=== PATIENT | male | born 1960 | race African-American/Black ===

== ENCOUNTER 2025-02-09 17:51 | Emergency (ER) | payer OTHER, MEDICARE, SELFPAY ==
--- NOTE | ~2025-02-09 | XR_ITS ---
XR toe 5th RT min 2V INDICATION: pain COMPARISON: None FINDINGS: Frontal, lateral and oblique views of the right fifth toe demonstrate the middle phalanx is subluxed laterally relative to the proximal phalanx. No acute fracture. IMPRESSION: Probable oropharynx of the first carpal is subluxed laterally relative to the proximal phalanx. No acute fracture. Reviewed, dictated and finalized at location S. IMPRESSION: Probable oropharynx of the first carpal is subluxed laterally relative to the p roximal phalanx. No acute fracture.
--- NOTE | ~2025-02-09 | XR_ITS ---
XR toe 5th RT min 2V INDICATION: pain COMPARISON: None FINDINGS: Single view of the right fifth toe demonstrate persistent lateral subluxation of the middle phalanx. IMPRESSION: There is persistent lateral subluxation of the middle phalanx. Reviewed, dictated and finalized at location S.
--- NOTE | ~2025-02-09 | XR_ITS ---
XR toe 5th RT min 2V INDICATION: pain COMPARISON: None FINDINGS: Single view of the right fifth toe demonstrate no acute fracture or dislocation. IMPRESSION: No acute fracture or dislocation. Reviewed, dictated and finalized at location S.
[2025-02-09 17:55] VITALS: BP 170/90; PULSE 89; RESP 16; TEMP 36.4; O2SAT 100
--- NOTE | 2025-02-09 19:45 | PC.NURSE ---
Pt declines ice pack at this time. Updated pt on POC.
--- OUTSIDE RECORDS SUMMARY | 2025-02-09 19:48 | XMS_ITS | Clinical Summary ---
Author Organization [employer] Address [address] [place] [address] Care Team Providers Care Security Coordinator Name Role Phone Provider, No Pcp Primary Care Provider Unavailab le Source Comments [facility],non-owned Affiliates and Associated Physician Practices is amultiple site organization consisting of ambulatory clinics and hospital sitesin [place], [place], [place]. This disclosure is being madepursuant to the Care Everywhere program and may not contain all information available regarding this patient. Last updated 18.[employer] Allergies No known active allergies Medications * Be aware that medications may not be up to date on this document. Alwaysverify current medications with the patient. No known medications Active Problems Problem Noted Date Diagnosed Date Hypertension, unspecified type 12/19/2024 Assessment & Plan (12/21/2024 6:01 PM CDT): - Continue home losartan. Assessment & Plan (12/20/2024 8:06 AM CDT): - Continue home hydrochlorothiazide, losartan. Assessment & Plan (12/19/2024 7:40 PM CDT): - Continue home hydrochlorothiazide, losartan. Abnormal EKG 12/19/2024 Chest pain 12/19/2024 Assessment & Plan (12/21/2024 6:01 PM CDT): - ddx includes dehydration, orthostatic hypotension, arrhythmia, vasovagal, medication adverse effect, structural heart disease, BPPV, costochondritis/muscle strain, other. - near syncope with concurrent chest pain when standing up favors cardiogenic etiology. - Patient states he has never had an echocardiogram before; no records on file. - Troponins WNL; electrolytes WNL. - No cardiac history per patient and record, however, it is unclear why the patient is taking aspirin. Plan: Follow up with [facility] for POTS Assessment & Plan (12/20/2024 4:10 PM CDT): - ddx includes dehydration, orthostatic hypotension, arrhythmia, vasovagal, medication adverse effect, structural heart disease, BPPV, costochondritis/muscle strain, other. - near syncope with concurrent chest pain when standing up favors cardiogenic etiology. - Patient states he has never had an echocardiogram before; no records on file. - Troponins WNL; electrolytes WNL. - No cardiac history per patient and record, however, it is unclear why the patient is taking aspirin. Plan: - Echo ordered - Repeat EKG ordered - Cardiac diet - BNP - Lipid profile - daily CBC, CMP, Mag, phos - Continue home ASA - Q4 vitals - Telemetry monitoring - Consider event monitor at discharge if work-up negative. -Bolus 500cc LR given Assessment & Plan (12/19/2024 7:40 PM CDT): - ddx includes dehydration, orthostatic hypotension, arrhythmia, vasovagal, medication adverse effect, structural heart disease, BPPV, costochondritis/muscle strain, other. - near syncope with concurrent chest pain when standing up favors cardiogenic etiology. - Patient states he has never had an echocardiogram before; no records on file. - Troponins WNL; electrolytes WNL. - No cardiac history per patient and record, however, it is unclear why the patient is taking aspirin. Plan: - Echo ordered - Repeat EKG ordered - Cardiac diet - BNP - Lipid profile - daily CBC, CMP, Mag, phos - Continue home ASA - Q4 vitals - Telemetry monitoring - Consider event monitor at discharge if work-up negative. Near syncope 12/19/2024 Assessment & Plan (12/21/2024 6:01 PM CDT): - ddx includes dehydration, orthostatic hypotension, arrhythmia, vasovagal, medication adverse effect, structural heart disease, BPPV, costochondritis/muscle strain, other. - near syncope with concurrent chest pain when standing up favors cardiogenic etiology. - Patient states he has never had an echocardiogram before; no records on file. - Troponins WNL; electrolytes WNL. - No cardiac history per patient and record, however, it is unclear why the patient is taking aspirin. Plan: Follow up with [facility] for POTS Assessment & Plan (12/20/2024 4:10 PM CDT): - ddx includes dehydration, orthostatic hypotension, arrhythmia, vasovagal, medication adverse effect, structural heart disease, BPPV, costochondritis/muscle strain, other. - near syncope with concurrent chest pain when standing up favors cardiogenic etiology. - Patient states he has never had an echocardiogram before; no records on file. - Troponins WNL; electrolytes WNL. - No cardiac history per patient and record, however, it is unclear why the patient is taking aspirin. Plan: - Echo ordered - Repeat EKG ordered - Cardiac diet - BNP - Lipid profile - daily CBC, CMP, Mag, phos - Continue home ASA - Q4 vitals - Telemetry monitoring - Consider event monitor at discharge if work-up negative. -Bolus 500cc LR given Assessment & Plan (12/19/2024 7:40 PM CDT): - ddx includes dehydration, orthostatic hypotension, arrhythmia, vasovagal, medication adverse effect, structural heart disease, BPPV, costochondritis/muscle strain, other. - near syncope with concurrent chest pain when standing up favors cardiogenic etiology. - Patient states he has never had an echocardiogram before; no records on file. - Troponins WNL; electrolytes WNL. - No cardiac history per patient and record, however, it is unclear why the patient is taking aspirin. Plan: - Echo ordered - Repeat EKG ordered - Cardiac diet - BNP - Lipid profile - daily CBC, CMP, Mag, phos - Continue home ASA - Q4 vitals - Telemetry monitoring - Consider event monitor at discharge if work-up negative. Dyslipidemia 12/19/2024 Assessment & Plan (12/21/2024 5:41 PM CDT): - Continue home atorvastatin Assessment & Plan (12/20/2024 8:06 AM CDT): - Continue home atorvastatin Assessment & Plan (12/19/2024 7:40 PM CDT): - Continue home atorvastatin Type 2 diabetes mellitus, wi thout long-term current use of insulin 12/19/2024 Assessment & Plan (12/21/2024 6:01 PM CDT): - A1C 12.4 on 09/14/2024 per CPRS. - On insulin in the past, not currently on insulin. - On semaglutide and empagliflozin at home - Glucose in low 100s since presentation. Plan: -Resume home med Assessment & Plan (12/20/2024 8:06 AM CDT): - A1C 12.4 on 09/14/2024 per CPRS. - On insulin in the past, not currently on insulin. - On semaglutide and empagliflozin at home - Glucose in low 100s since presentation. Plan: - SSI 0-6 - hypoglycemic protocols - A1C ordered Assessment & Plan (12/19/2024 7:40 PM CDT): - A1C 12.4 on 09/14/2024 per CPRS. - On insulin in the past, not currently on insulin. - On semaglutide and empagliflozin at home - Glucose in low 100s since presentation. Plan: - SSI 0-6 - hypoglycemic protocols - A1C ordered Class 3 severe obesity due to excess calories in adult 12/19/2024 Assessment & Plan (12/21/2024 6:01 PM CDT): - Patient states he has intentionally lost 180 pounds, with his max weight being ~505 pounds. Assessment & Plan (12/20/2024 8:06 AM CDT): - Patient states he has intentionally lost 160 pounds, with his max weight being ~505 pounds. Assessment & Plan (12/19/2024 7:40 PM CDT): - Patient states he has intentionally lost 160 pounds, with his max weight being ~505 pounds. Encounters Date Type Department Care Team Description 12/19/2024 3:19 PM CDT - 12/21/2024 5:28 PM CDT Hospital Encounter [facility] Early Admission Unit [address] [place] [id number] Nancie Mora MD Wheeler, Joseph R, MD Eshetu, Nebiyu A, MD Internal Medicine Discharge Disposition: Home or Self Care 12/19/2024 Travel from Last 3 Months Family History Medical History Relation Name Comments None Known Brother cancer None Known Father heart disease None Known Mother heart disease None Known Sister cancer Relation Name Status Comments Brother Father Mother Sister Social History Tobacco Use Types Packs/Day Years Used Date Smoking Tobacco: Never Smokeless Tobacco: Never Tobacco Cessation:Counseling Given: No Alcohol Use Standard Drinks/Week Comments Never 0 (1 standard drink = 0.6 oz pur e alcohol) AUDIT-C Answer Date Recorded Q1: How often do you have a drink containing alcohol? Never 12/20/2024 Q2: How many drinks containi ng alcohol do you have on a typical day when you are drinking? Patient does not drink Q3: How often do you have si x or more drinks on one occasion? Never 12/20/2024 Overall Financial Resource Strain (CARDIA) Answe r Date Recorded How hard is it for you to pa y for the very basics like food, housing, medical care, and heating? Not very hard 12/20/2024 [facility] [place] [facility] Occupat ional [facility] - Occupational Stress Questionnaire Answer Date Recorded Do you feel stress - tense, restless, nervous, or anxious, or unable to sleep at night because your mind is troubled all the time - these days? Not at all 12/20/2024 Hunger Vital Sign Answer Date Recorded Within the past 12 months, y ou worried that your food would run out before you got the money to buy more. Never true 12/21/19 Within the past 12 months, t he food you bought just didn't last and you didn't have money to get more. Never true 12/20/2024 PRAPARE - Transportation Answer Date Re corded In the past 12 months, has l ack of transportation kept you from medical appointments or from getting medications? No 11/27 In the past 12 months, has l ack of transportation kept you from meetings, work, or from getting things needed for daily living? No 12/20/2024 Housing Stability Vital Sign Answer Eder e Recorded In the last 12 months, was t here a time when you were not able to pay the mortgage or rent on time? No 12/20/2024 In the past 12 months, how m any times have you moved where you were living? 0 12/20/2024 At any time in the past 12 m [facility], were you homeless or living in a intermediate (including now)? No 12/20/2024 Sex and Gender Information Value Date Recorded Sex Assigned at Not on file Legal Sex Male 12:40 PM CDT Gender Identity Not on file Sexual Orientation Not on file Last Filed Vital Signs Vital Sign Reading Time Taken Comments Blood Pressure 112/76 12/21/2024 2:25 PM CDT Pulse 81 12/21/2024 2:25 PM CDT Temperature 36.6 C (97.9 F) 12/21/2024 2:25 PM CDT Respiratory Rate 20 12/21/2024 2:25 PM CDT Oxygen Saturation 94% 12/21/2024 2:25 PM CDT Inhaled Oxygen Concentration - - Weight 167 kg (368 lb 3.2 oz) 12/19/2024 7:16 PM CDT Height 170.2 cm (5' 7) 12/19/2024 7:16 PM CDT Body Mass Index 57.67 12/19/2024 7:16 PM CDT Plan of Treatment Health Maintenance Due Date Last Done Comments COLOGUARD (AGES 45-75) - COLON CA SCREENING 1960 COLON MONITORING 1960 COLONOSCOPY - COLON CA SCREENING 1960 CT COLONOGRAPHY - COLON CA SCREENING 1960 Colorectal Cancer Screening 1960 FIT - COLON CA SCREENING 1960 FLEX SIG - COLON CA SCREENING 1960 MEDICARE AWV 12 MONTHS 1960 HEPATITIS C SCREENING 07/30/1976 DTAP/TDAP/TD VACCINES (1 - Tdap) 1977 PNEUMOCOCCAL VACCINE 50+ (1 of 2 - PCV) 1977 DIABETES-STATIN 1998 ZOSTER VACCINE (1 of 2) 2008 HEPATITIS B VACCINE (1 of 3 - Risk 3-dose series) 2018 Respiratory Syncytial Virus (RSV) Vaccine Pt: or over 60 yrs (1 - Risk 60-74 years 1-dose series) 2018 DEPRESSION SCREENING 04/28/2024 DIABETES - URINE PROTEIN SCREENING 04/28/2024 DIABETES RETINOPATHY SCREENING 12/19/2024 DIABETES-FOOT EXAM WITH MONOFILAMENT 12/19/2024 COVID-19 VACCINE ( season) 2024 04/06/2024, 07/24/2022, 04/02/2022, Additional history exists INFLUENZA VACCINE (#1) 2024 , 03/07/2023, 04/12/2022, Additional history exists DIABETES-HGB A1C 06/22/2025 12/20/2024 DIABETES-SERUM CREATININE 12/21/20252024, 12/20/2024, 12/19/2024 HIB VACCINE Aged Out No longer eligi ble based on patient's age to complete this topic HPV VACCINE Aged Out No longer eligi ble based on patient's age to complete this topic MENINGOCOCCAL (Group B) VACCINE SHARED DECISION-MAKING Aged Out No longer eligible based on patient's age to complete this topic MENINGOCOCCAL GROUPS A/C/Y/W VACCINE Aged Out No longer eligible based on patient's age to complete this topic Procedures Procedure Name Priority Date/Time Associated Diagnosis Comments GLUCOSE - POINT OF CARE Routine 12/21/2024 1:01 PM CDT GLUCOSE - POINT OF CARE Routine 12/21/2024 9:34 AM CDT ECHO COMPLETE W CONTRAST PENDING DISCHARGE 12/21/2024 9:22 AM CDT Chest pain, unspecified type PHOSPHORUS BLOOD Routine 12/21/2024 5:06 AM CDT Chest pain, unspecified type MAGNESIUM BLOOD Routine 12/21/2024 5:06 AM CDT Chest pain, unspecified type CBC W/O DIFFERENTIAL AM Draw 12/21/2024 5:06 AM CDT Chest pain, unspecified type COMPREHENSIVE METABOLIC PANEL AM Draw 12/21/2024 5:06 AM CDT Chest pain, unspecified type GLUCOSE - POINT OF CARE Routine 12/20/2024 9:06 PM CDT GLUCOSE - POINT OF CARE Routine 12/20/2024 5:52 PM CDT CARDIAC EKG ORDER 12/20/2024 2:5 0 PM CDT GLUCOSE - POINT OF CARE Routine 12/20/2024 12:26 PM CDT GLUCOSE - POINT OF CARE Routine 12/20/2024 8:53 AM CDT LIPID PROFILE Routine 12/20/2024 7:21 AM CDT Abnormal EKG Abnormal finding of blood chemistry, unspecified HEMOGLOBIN A1C Routine 12/20/2024 7:21 AM CDT Abnormal EKG Other specified diabetes mellitus without complications (HCC) PHOSPHORUS BLOOD Routine 12/20/2024 7:21 AM CDT Chest pain, unspecified type MAGNESIUM BLOOD Routine 12/20/2024 7:21 AM CDT Chest pain, unspecified type CBC W/O DIFFERENTIAL AM Draw 12/20/2024 7:21 AM CDT Chest pain, unspecified type COMPREHENSIVE METABOLIC PANEL AM Draw 12/20/2024 7:21 AM CDT Chest pain, unspecified type B-TYPE NATRIURETIC PEPTIDE Routine 12/20/2024 7:21 AM CDT Chest pain, unspecified type GLUCOSE - POINT OF CARE Routine 12/19/2024 9:17 PM CDT EKG 12-LEAD Routine 12/19/2024 4:49 PM CDT Chest pain, unspecified type TSH Routine 12/19/2024 3:16 PM CDT Abnormal EKG Other specified diabetes mellitus with unspecified diabetic retinopathy without macular edema (HCC) TROPONIN-I HIGH SENSITIVE REFLEX 1HOUR Timed 12/19/2024 3:16 PM CDT XR CHEST 2VW STAT 12/19/2024 2:30 PM CDT Chest pain, unspecified type TROPONIN-I HIGH SENSITIVE BASELINE + 1HR STAT 12/19/2024 1:16 PM CDT MAGNESIUM BLOOD STAT 12/19/2024 1:16 PM CDT COMPREHENSIVE METABOLIC PANEL STAT 12/19/2024 1:16 PM CDT CBC W AUTO DIFFERENTIAL STAT 12/19/2024 1:16 PM CDT EKG 12-LEAD STAT 12/19/2024 1:13 PM CDT Chest pain, unspecified type from Last 3 Months Results * GLUCOSE - POINT OF CARE (12/21/2024 1:01 PM CDT) Only the most recent of7 resultswithin the time period is included. Glucose WB/POC 96 70 - 99 mg/dL 12/21/2024 1:06 PM CDT [facility] Specimen Type Venous 12/21/2024 1:06 PM CDT [facility] Blood BLOOD SPECIMEN / Unknown 12/21/2024 1:01 PM CDT 12/21/2024 1:06 PM CDT Arlene Jacques MD LAB - POINT OF CARE ORDERABLE S Final Result [facility] [address] [place] [address], [facility] [phone] * ECHO COMPLETE W CONTRAST (12/21/2024 9:22 AM CDT) AV area index 1.114 cm /m SSM CV FUJI PACS Dimensionless Index 0.784 unitless SSM CV FUJI PACS Myocardial strain charge 2 unitless SSM CV FUJI PACS IVSd 2D 0.98 cm SSM CV FUJ I PACS LVIDd 3.916 cm SSM CV FUJ I PACS LVIDs 2.37 cm SSM CV FUJ I PACS LVOT diam 2.296 cm SSM CV FUJ I PACS LVPWd 0.886 cm SSM CV FUJ I PACS LV biplane EF 63.574 % SSM CV FUJI PACS LV A2C EF 63.569 % SSM CV FUJ I PACS LV A4C EF 64.23 % SSM CV FUJ I PACS LV EDV A2C 41.461 ml SSM CV FU JI PACS LV EDV A4C 94.887 ml SSM CV FU JI PACS LV ESV A2C 15.105 ml SSM CV FU JI PACS LV ESV A4C 33.941 ml SSM CV FU JI PACS LVOT pk grad 3.123 mmHg SSM CV FUJI PACS LVOT pk trent 95.248 cm/s SSM CV F UJI PACS LVOT VTI 19.912 cm SSM CV FUJ I PACS RV-rivera basal diam 3.26 cm SSM CV FUJI PACS RVIDd 3.016 cm SSM CV FUJ I PACS RVOT diam Doppler 2.243 cm SS M CV FUJI PACS RVOT pk trent 65.451 cm/s SSM CV F UJI PACS RVOT VTI 12.161 cm SSM CV FUJ I PACS LA size 4.145 cm SSM CV FUJ I PACS RA area 15.617 cm SSM CV FUJI PACS AV area pk trent 2.98 cm SSM CV FUJI PACS AV area cont VTI 3.247 cm SSM CV FUJI PACS AV pk grad 6.918 mmHg SSM CV FU JI PACS AV mn grad 3.689 mmHg SSM CV FU JI PACS AV pk trent 132.318 cm/s SSM CV FUJ I PACS AV VTI 25.386 cm SSM CV FUJ I PACS MV A pk trent 77.716 cm/s SSM CV F UJI PACS MV E pk trent 59.332 cm/s SSM CV F UJI PACS MV E' lateral trent 8.677 cm/s SS M CV FUJI PACS MV mn grad 1.136 mmHg SSM CV FU JI PACS MV VTI 19.979 cm SSM CV FUJ I PACS PV pk trent 79.127 cm/s SSM CV FUJ I PACS PV VTI 14.45 cm SSM CV FUJ I PACS TAPSE 1.823 cm SSM CV FUJ I PACS Anatomical Region Laterality Modality Ultrasound 12/21/2024 8:32 AM CDT Narrative 12/21/2024 11:04 AM CDT Summary * The left ventricle is normal in size with normal systolic function and an estimated ejection fraction of 64 % by biplane method of disks. Left ventricular wall motion is grossly normal, however endocardial definition is limited despite contrast. * There is mildly increased left ventricular wall thickness. * The left ventricular diastolic function is normal. * Right ventricle is normal in size with normal systolic function. * Unable to assess pulmonary pressures due to a lack of tricuspid and pulmonic regurgitation. * No hemodynamically significant valve disease. Patient Info Name: Karthik Keane Age: 64 years : 1960 Gender: Male Ht: 67 in Wt: 368 lb BSA: 2.91 m2 HR: 72 bpm BP: 119 / 68 mmHg Heart Rhythm: Sinus Rhythm Exam Date: 12/21/2024 8:32 AM Exam Room: [facility] 3 Patient Status: I/P Study Site: [facility] Primary Location: [facility] EStudy Info Technical Quality: Technically Difficult Exam Type: ECHO COMPLETE W CONTRAST Indications R07.9 - Chest pain, unspecified type Procedure(s) * A complete 2D, color Doppler, spectral Doppler and M-Mode transthoracic echocardiogram was performed with an Ultrasound Enhancing Agent (UEA). Contrast/Agitated Saline Contrast / Saline: Definity Amount: 1.50 ml Administered By: Celeste Pat Reaction to Contrast: no Reason for Technically Difficult Study: lung interference, body habitus Staff Referring Physician: Omero Salcedo Ordering Provider: Omero Salcedo Attending Physician: Omero Salcedo Fellow: Do Felder Woodwind Instrument Repairer: Celeste Pat Left Ventricle Left ventricular systolic function is normal with an estimated ejection fraction of 64% by biplane method of disks. The left ventricle is normal in size. There is mildly increased left ventricular wall thickness. The left ventricular mass is normal. Left ventricular segmental wall motion is grossly normal, however endocardial definition is limited despite contrast. The left ventricular diastolic function is normal. Right Ventricle The right ventricle is normal in size. Right ventricular systolic function is normal. Ventricular Septum Intact interventricular septum visualized by 2D and color Doppler imaging. Left Atrium The left atrium is normal in size. Right Atrium The right atrium is normal in size. Atrial Septum Intact interatrial septum visualized by 2D and color Doppler imaging. Aortic Valve The aortic valve is not well visualized. There is no aortic valve stenosis. There is no aortic valve regurgitation. Pulmonic Valve The pulmonic valve is not well visualized. There is no pulmonic valve stenosis. There is no pulmonic regurgitation. Mitral Valve The mitral valve is not well visualized, but grossly normal. There is no mitral valve stenosis. There is no mitral valve regurgitation. Tricuspid Valve The tricuspid valve is not well visualized. There is no tricuspid valve stenosis. There is no tricuspid valve regurgitation. Unable to assess pulmonary pressures due to a lack of tricuspid and pulmonic regurgitation. Inferior Vena Cava The inferior vena cava is not well visualized and therefore the right atrial pressure is assumed to be 8 mmHg. Pericardium/Pleural There is no pericardial effusion. Aorta The aortic root at the sinus of Valsalva is normal in size. The ascending aorta is normal in size. Measurements Left Ventricular Outflow Tract Name Value Normal LVOT 2D LVOT Diameter 2.3 cm LVOT Area 4.1 cm2 LVOT Doppler LVOT Peak Velocity 1.0 m/s LVOT Peak Gradient 3 mmHg LVOT Mean Velocity 62.69 cm/s LVOT Mean Gradient 2 mmHg LVOT VTI 19.9 cm LVOT VTI/AV VTI Ratio 0.8 LVOT Stroke Volume 82 ml LVOT Stroke Volume Index 28 ml/m2 35-58 LVOT CO 5.1 l/min LVOT CI 1.8 l/min/m2 Pulmonic Valve Name Value Normal PV 2D RVOT Diameter (2D) 2.2 cm 1.7-2.7 RVOT Doppler RVOT Peak Velocity 0.7 m/s RVOT Peak Gradient 2 mmHg RVOT Mean Gradient 1 mmHg PV Doppler PV Peak Velocity 0.8 m/s PV Peak Gradient 3 mmHg PV Mean Gradient 1 mmHg PV Area (Cont Eq VTI) 3.33 cm2 PV Area Index (Cont Eq VTI) 1.14 cm2/m2 PV Area (Cont Eq Trent) 3.3 cm2 PV Area Index (Cont Eq Trent) 1.12 cm2/m2 Mitral Valve Name Value Normal MV Doppler MV Peak Gradient 4 mmHg MV Mean Gradient 1 mmHg MV DI (VTI) 1.00 MV PHT 54 ms MV Area (PHT) 4.06 cm2 4.00-5.00 MV Area (Cont Eq VTI) 4.12 cm2 MV Diastolic Function MV E Peak Velocity 0.6 m/sec MV A Peak Velocity 0.8 m/sec MV E/A 0.8 MV Decel Time (PW) 212 ms MV A Wave Duration 140 ms MV Annular TDI MV Septal e' Velocity 7 cm/s >=8 MV E/e' (Septal) 9 <=8 MV Lateral e' Velocity 9 cm/s >=10 MV E/e' (Lateral) 7 <=8 MV e' Average 8 cm/s MV E/e' (Average) 8 Tricuspid Valve Name Value Normal Estimated PAP/RSVP RA Pressure 8 mmHg <=5 TV Annular TDI TV Lateral Samanta s' Velocity 14 cm/s 10-19 Septae/Shunt/Generic Name Value Normal Qp/Qs Qp/Qs 0.6 Aortic Valve Name Value Normal AV 2D/MM AV Cusp Sep (MM) 2.0 cm AV Doppler AV Peak Velocity 1.32 m/s AV Peak Gradient 7 mmHg AV Mean Gradient 4 mmHg AV VTI 25 cm AV Area (Cont Eq VTI) 3.25 cm2 >=2.00 AV Area (Cont Eq Trent) 2.98 cm2 AV DI (VTI) 0.78 AV DI (Trent) 0.72 AV Regurgitation 2D LVOT Area 4.14 cm2 Ventricles Name Value Normal LV Dimensions 2D/MM IVS Diastolic Thickness (2D) 1.0 cm 0.6-1.0 LVID Diastole (2D) 3.9 cm 4.2-5.8 LVPW Diastolic Thickness (2D) 0.9 cm 0.6-1.0 IVS Systolic Thickness (2D) 1.2 cm LVID Systole (2D) 2.4 cm 2.5-4.0 LVPW Systolic Thickness (2D) 1.4 cm LV Mass (2D Cubed) 99 g 88-224 LV Mass Index (2D Cubed) 34 g/m2 49-115 Relative Wall Thickness (2D) 0.45 <=0.42 LV Fractional Shortening/Ejection Fraction 2D/MM LV Fractional Shortening (2D) 39 % 25-43 LV EF (2D Teicholz) 71 % 52-72 LV Diastolic Volume (4C MOD) 95 ml LV EF (4C MOD) 64 % LV Diastolic Volume (2C MOD) 41 ml LV EF (2C MOD) 64 % LV Diastolic Volume (BP MOD) 66 ml 62-150 LV Diastolic Volume Index (BP MOD) 23 ml/m2 34-74 LV Systolic Volume (BP MOD) 24 ml 21-61 LV Systolic Volume Index (BP MOD) 8 ml/m2 11-31 LV EF (BP MOD) 64 % 52-72 LV Diastolic Length (4C) 8.0 cm LV Systolic Length (4C) 7.0 cm LV Stroke Volume (4C MOD) 61 ml RV Dimensions 2D/MM RVID Diastole (2D) 3.0 cm 2.5-3.5 RVID Systole (2D) 2.7 cm RV Basal Diastolic Dimension 3.3 cm 2.5-4.1 RV Diastolic Length (4C) 7.8 cm 5.9-8.3 TAPSE 1.8 cm >=1.7 Atria Name Value Normal LA Dimensions LA Dimension (2D) 4.1 cm 3.0-4.1 LA Dimen Index (2D) 1.4 cm/m2 RA Dimensions RA Area (4C) 16 cm2 <=18 RA Area (4C) Index 5 cm2/m2 Report Signatures Finalized by Mejia Prieto on 12/21/2024 11:04 AM Reviewed by Sohan Adames on 12/21/2024 10:28 AM Procedure Note Mejia Prieto MD - 12/21/2024 Summary * The left ventricle is normal in size with normal systolic function andan estimated ejection fraction of 64 % by biplane method of disks. Left ventricular wall motion is grossly normal, however endocardial definitionis limited despite contrast. * There is mildly increased left ventricular wall thickness. * The left ventricular diastolic function is normal. * Right ventricle is normal in size with normal systolic function. * Unable to assess pulmonary pressures due to a lack of tricuspid and pulmonic regurgitation. * No hemodynamically significant valve disease. Patient Info Name: Karthik Keane Age: 64 years : 1960 Gender: Male Ht: 67 in Wt: 368 lb BSA: 2.91 m2 HR: 72 bpm BP: 119 / 68 mmHg Heart Rhythm: Sinus Rhythm Exam Date: 12/21/2024 8:32 AM Exam Room: [facility] Patient Status: I/P Study Site: [facility] Primary Location: [facility] Info Technical Quality: Technically Difficult Exam Type: ECHO COMPLETE W CONTRAST Indications R07.9 - Chest pain, unspecified type Procedure(s) * A complete 2D, color Doppler, spectral Doppler and M-Modetransthoracic echocardiogram was performed with an Ultrasound Enhancing Agent (UEA). Contrast/Agitated Saline Contrast / Saline: Definity Amount: 1.50 ml Administered By: Celeste Pat Reaction to Contrast: no Reason for Technically Difficult Study: lung interference, bodyhabitus Staff Referring Physician: Omero Salcedo Ordering Provider: Omero Salcedo Attending Physician: Omero Salcedo Fellow: Do Felder Woodwind Instrument Repairer: Celeste Pat Left Ventricle Left ventricular systolic function is normal with an estimatedejection fraction of 64% by biplane method of disks. The left ventricle is normalin size. There is mildly increased left ventricular wall thickness. Theleft ventricular mass is normal. Left ventricular segmental wall motion isgrossly normal, however endocardial definition is limited despite contrast. Theleft ventricular diastolic function is normal. Right Ventricle The right ventricle is normal in size. Right ventricular systolicfunction is normal. Ventricular Septum Intact interventricular septum visualized by 2D and color Dopplerimaging. Left Atrium The left atrium is normal in size. Right Atrium The right atrium is normal in size. Atrial Septum Intact interatrial septum visualized by 2D and color Doppler imaging. Aortic Valve The aortic valve is not well visualized. There is no aortic valvestenosis. There is no aortic valve regurgitation. Pulmonic Valve The pulmonic valve is not well visualized. There is no pulmonic valve stenosis. There is no pulmonic regurgitation. Mitral Valve The mitral valve is not well visualized, but grossly normal. There isno mitral valve stenosis. There is no mitral valve regurgitation. Tricuspid Valve The tricuspid valve is not well visualized. There is no tricuspidvalve stenosis. There is no tricuspid valve regurgitation. Unable to assess pulmonary pressures due to a lack of tricuspid and pulmonicregurgitation. Inferior Vena Cava The inferior vena cava is not well visualized and therefore the rightatrial pressure is assumed to be 8 mmHg. Pericardium/Pleural There is no pericardial effusion. Aorta The aortic root at the sinus of Valsalva is normal in size. Theascending aorta is normal in size. Measurements Left Ventricular Outflow Tract Name Value Normal LVOT 2D LVOT Diameter 2.3 cm LVOT Area 4.1 cm2 LVOT Doppler LVOT Peak Velocity 1.0 m/s LVOT Peak Gradient 3 mmHg LVOT Mean Velocity 62.69 cm/s LVOT Mean Gradient 2 mmHg LVOT VTI 19.9 cm LVOT VTI/AV VTI Ratio 0.8 LVOT Stroke Volume 82 ml LVOT Stroke Volume Index 28 ml/m2 35-58 LVOT CO 5.1 l/min LVOT CI 1.8 l/min/m2 Pulmonic Valve Name Value Normal PV 2D RVOT Diameter (2D) 2.2 cm 1.7-2.7 RVOT Doppler RVOT Peak Velocity 0.7 m/s RVOT Peak Gradient 2 mmHg RVOT Mean Gradient 1 mmHg PV Doppler PV Peak Velocity 0.8 m/s PV Peak Gradient 3 mmHg PV Mean Gradient 1 mmHg PV Area (Cont Eq VTI) 3.33 cm2 PV Area Index (Cont Eq VTI) 1.14 cm2/m2 PV Area (Cont Eq Trent) 3.3 cm2 PV Area Index (Cont Eq Trent) 1.12 cm2/m2 Mitral Valve Name Value Normal MV Doppler MV Peak Gradient 4 mmHg MV Mean Gradient 1 mmHg MV DI (VTI) 1.00 MV PHT 54 ms MV Area (PHT) 4.06 cm2 4.00-5.00 MV Area (Cont Eq VTI) 4.12 cm2 MV Diastolic Function MV E Peak Velocity 0.6 m/sec MV A Peak Velocity 0.8 m/sec MV E/A 0.8 MV Decel Time (PW) 212 ms MV A Wave Duration 140 ms MV Annular TDI MV Septal e' Velocity 7 cm/s >=8 MV E/e' (Septal) 9 <=8 MV Lateral e' Velocity 9 cm/s >=10 MV E/e' (Lateral) 7 <=8 MV e' Average 8 cm/s MV E/e' (Average) 8 Tricuspid Valve Name Value Normal Estimated PAP/RSVP RA Pressure 8 mmHg <=5 TV Annular TDI TV Lateral Samanta s' Velocity 14 cm/s 10-19 Septae/Shunt/Generic Name Value Normal Qp/Qs Qp/Qs 0.6 Aortic Valve Name Value Normal AV 2D/MM AV Cusp Sep (MM) 2.0 cm AV Doppler AV Peak Velocity 1.32 m/s AV Peak Gradient 7 mmHg AV Mean Gradient 4 mmHg AV VTI 25 cm AV Area (Cont Eq VTI) 3.25 cm2 >=2.00 AV Area (Cont Eq Trent) 2.98 cm2 AV DI (VTI) 0.78 AV DI (Trent) 0.72 AV Regurgitation 2D LVOT Area 4.14 cm2 Ventricles Name Value Normal LV Dimensions 2D/MM IVS Diastolic Thickness (2D) 1.0 cm 0.6-1.0 LVID Diastole (2D) 3.9 cm 4.2-5.8 LVPW Diastolic Thickness (2D) 0.9 cm 0.6-1.0 IVS Systolic Thickness (2D) 1.2 cm LVID Systole (2D) 2.4 cm 2.5-4.0 LVPW Systolic Thickness (2D) 1.4 cm LV Mass (2D Cubed) 99 g 88-224 LV Mass Index (2D Cubed) 34 g/m2 49-115 Relative Wall Thickness (2D) 0.45 <=0.42 LV Fractional Shortening/Ejection Fraction 2D/MM LV Fractional Shortening (2D) 39 % 25-43 LV EF (2D Teicholz) 71 % 52-72 LV Diastolic Volume (4C MOD) 95 ml LV EF (4C MOD) 64 % LV Diastolic Volume (2C MOD) 41 ml LV EF (2C MOD) 64 % LV Diastolic Volume (BP MOD) 66 ml 62-150 LV Diastolic Volume Index (BP MOD) 23 ml/m2 34-74 LV Systolic Volume (BP MOD) 24 ml 21-61 LV Systolic Volume Index (BP MOD) 8 ml/m2 11-31 LV EF (BP MOD) 64 % 52-72 LV Diastolic Length (4C) 8.0 cm LV Systolic Length (4C) 7.0 cm LV Stroke Volume (4C MOD) 61 ml RV Dimensions 2D/MM RVID Diastole (2D) 3.0 cm 2.5-3.5 RVID Systole (2D) 2.7 cm RV Basal Diastolic Dimension 3.3 cm 2.5-4.1 RV Diastolic Length (4C) 7.8 cm 5.9-8.3 TAPSE 1.8 cm >=1.7 Atria Name Value Normal LA Dimensions LA Dimension (2D) 4.1 cm 3.0-4.1 LA Dimen Index (2D) 1.4 cm/m2 RA Dimensions RA Area (4C) 16 cm2 <=18 RA Area (4C) Index 5 cm2/m2 Report Signatures Finalized by Mejia Prieto on 12/21/2024 11:04 AM Reviewed by Sohan Adames on 12/21/2024 10:28 AM us Omero Salcedo MD ECHO CUPID Final Result * (ABNORMAL) CBC W/O DIFFERENTIAL (12/21/2024 5:06 AM CDT) Only the most recent of2 resultswithin the time period is included. WBC 8.1 4.0 - 10.7 x10E9/L 12/21/2024 5:59 AM [facility] RBC Count 4.08(L) 4.30 - 5.80 x10E12/L 12/21/2024 5:59 AM [facility] Hemoglobin 12.4(L) 13.3 - 17.5 g/dL 12/21/2024 5:59 AM [facility] Hematocrit 37.6(L) 38.7 - 51.1 % 12/21/2024 5:59 AM [facility] MCV 92.2 80.0 - 98.0 fL 12/21/2024 5:59 AM [facility] MCH 30.4 26.7 - 33.6 pg 12/21/2024 5:59 AM [facility] MCHC 33.0 31.7 - 36.3 g/dL 12/21/2024 5:59 AM [facility] RDW-CV 12.9 11.3 - 14.8 % 12/21/2024 5:59 AM [facility] Platelet Count 188 150 - 420 x10E9/L 12/21/2024 5:59 AM [facility] MPV 10.8 7.8 - 11.4 fL 12/21/2024 5:59 AM [facility] Blood BLOOD SPECIMEN / Unknown Lab Venipuncture / Unknown 12/21/2024 5:06 AM CDT 12/21/2024 5:53 AM CDT us Nancie Mora MD LAB - HEMATOLOGY ORDERABLES Fi nal Result [facility] [address] [place] [address], [facility] [phone] * (ABNORMAL) COMPREHENSIVE METABOLIC PANEL (12/21/2024 5:06 AM T) Only the most recent of3 resultswithin the time period is included. BUN 26 7 - 26 mg/dL 12/21/2024 6:29 AM [facility] Creatinine 1.21(H) 0.71 - 1.16 mg/dL 12/21/2024 6:29 AM [facility] Sodium 137 136 - 145 mmol/L 12/21/2024 6:29 AM [facility] Potassium 3.9 3.5 - 4.5 mmol/L 12/21/2024 6:29 AM [facility] Chloride 108(H) 98 - 107 mmol/L 12/21/2024 6:29 AM [facility] CO2 20(L) 22 - 29 mmol/L 12/21/2024 6:29 AM [facility] Glucose 98 70 - 99 mg/dL 12/21/2024 6:29 AM [facility] Calcium 9.0 8.4 - 10.2 mg/dL 12/21/2024 6:29 AM [facility] Protein Total 7.3 6.0 - 8.3 g/dL 12/21/2024 6:29 AM [facility] Albumin 3.6 3.4 - 5.0 g/dL 12/21/2024 6:29 AM [facility] Bilirubin Total 0.4 0.2 - 1.2 mg/dL 12/21/2024 6:29 AM [facility] Alkaline Phosphatase 84 40 - 150 U/L 12/21/2024 6:29 AM [facility] ALT 30 5 - 55 U/L 12/21/2024 6:29 AM [facility] AST 28 5 - 34 U/L 12/21/2024 6:29 AM [facility] Anion Gap 9 6 - 16 12/21/2024 6:29 AM [facility] BUN/Creatinine Ratio 21 7 - 23 12/21/2024 6:29 AM [facility] Osmolality Calculated 289 275 - 295 mOsm/kg 12/21/2024 6:29 AM [facility] Albumin/Globulin Ratio 1.0(L) 1.1 - 2.3 12/21/2024 6:29 AM [facility] eGFR by CKD-EPI 66(L) >=90 mL/min/1.7 3 m2 12/21/2024 6:29 AM [facility] Comment:Estimated Glomerular Filtration Rate (eGFR) calculated using the CKD-EPI Creatinine Equation (2020), per the National Kidney Foundation and [place] Society of Nephrology recommendations. Blood BLOOD SPECIMEN / Unknown Lab Venipuncture / Unknown 12/21/2024 5:06 AM CDT 12/21/2024 5:52 AM CDT us Nancie Mora MD LAB - CHEMISTRY ORDERABLES Fin al Result [address] [address], [facility] [phone] * PHOSPHORUS BLOOD (12/21/2024 5:06 AM CDT) Only the most recent of2 resultswithin the time period is included. Phosphorus 3.8 2.8 - 5.1 mg/dL 12/21/2024 6:29 AM [facility] Blood BLOOD SPECIMEN / Unknown Lab Venipuncture / Unknown 12/21/2024 5:06 AM CDT 12/21/2024 5:52 AM CDT us Nancie Mora MD LAB - CHEMISTRY ORDERABLES Fin al Result [address] [address], [facility] [phone] * MAGNESIUM BLOOD (12/21/2024 5:06 AM CDT) Only the most recent of3 resultswithin the time period is included. Magnesium 2.0 1.6 - 2.6 mg/dL 12/21/2024 6:29 AM CDT [facility] Blood BLOOD SPECIMEN / Unknown Lab Venipuncture / Unknown 12/21/2024 5:06 AM CDT 12/21/2024 5:52 AM CDT us Nancie Mora MD LAB - CHEMISTRY ORDERABLES Fin al Result Performing Organization Address City/[facility]/ZIP Co de Phone Number [address] [address], [facility] [phone] * CARDIAC EKG ORDER (12/20/2024 2:50 PM CDT) Narrative 12/20/2024 2:50 PM CDT Ordered by an unspecified provider. Scanned Document CARDIAC SERVICES ORDERABLES Fin al Result * (ABNORMAL) HEMOGLOBIN A1C (12/20/2024 7:21 AM CDT) Hemoglobin A1c 6.3(H) <=5.6 % 12/20/2024 1:12 PM CDT [facility] Estimated Average Glucose 134 mg/dL 12/20/2024 1:12 PM CDT [facility] Comment: HbA1c Interpretation: Normal : < 5.7% Pre-diabetes: 5.7-6.4% Diabetes: Equal to or greater than 6.5% Test results diagnostic of diabetes should be repeated for confirmation. Treatment target values recommended by ADA and other clinical organizations should be used to evaluate metabolic control in patients. Reference: [place] Diabetes Association, Standards of Care in Diabetes -2020 In patients 70 years and older consider HbA1c target range of 7.0-7.5% (Reference: Bhandari A, et al. JAMDA. 2012) The Sebia assay for the measurement of HbA1c is a National Glycohemoglobin Standardization Program (NGSP) certified method. Blood BLOOD SPECIMEN / Unknown Lab Venipuncture / Unknown 12/20/2024 7:21 AM CDT 12/20/2024 9:26 AM CDT Nancie Mora MD LAB - CHEMISTRY ORDERABLES Fin al Result Performing Organization Address City/[facility]/ZIP Co de Phone Number [address] [address], [facility] [phone] * B-TYPE NATRIURETIC PEPTIDE (12/20/2024 7:21 AM CDT) Pathologist [facility] BNP <10 <100 pg/mL 12/20/2024 10:05 AM CDT [facility] Comment: A decision threshold of 100 pg/mL has been demonstrated to provide the maximal combination of sensitivity, specificity and predictive value for the diagnosis of congestive heart failure (CHF). Virtually all patients with no evidence of CHF have BNP values less than 100 pg/mL. A BNP value greater than 100 pg/mL is consistent with the diagnosis of CHF in the appropriate clinical setting. In a study of 693 patients (male and female) with diagnosed CHF, the following values were determined based on the NYHA functional classification system: NYHA Functional Class Mean Valule (pg/mL) % >100 pg/mL I 320 58.1 II 432 73.0 III 656 79.0 IV 1635 98.3 Blood BLOOD SPECIMEN / Unknown Lab Venipuncture / Unknown 12/20/2024 7:21 AM CDT 12/20/2024 9:26 AM CDT Nancie Mora MD LAB - CHEMISTRY ORDERABLES Fin al Result Performing Organization Address City/[facility]/ZIP Co de Phone Number [address] [address], [place] [phone] * (ABNORMAL) LIPID PROFILE (12/20/2024 7:21 AM CDT) Cholesterol Total 138 <200 mg/dL 12/20/2024 10:27 AM T [facility] HDL 40(L) >40 mg/dL 12/20/2024 10:27 AM [facility] Comment: ATP III Classification of HDL Cholesterol: <40 mg/dL: Considered a major risk factor. >60 mg/dL: Considered a negative risk factor. LDL Calculated 80 <100 mg/dL 12/20/2024 10:27 AM [facility] Comment: ATP III Classification of LDL Cholesterol: <100 mg/dL: Optimal 100 - 129 mg/dL: Near Optimal/Above Optimal 130 - 159 mg/dL: Borderline High 160 - 189 mg/dL: High >190 mg/dL: Very High LDL is calculated using the Friedewald equation. Triglycerides 88 <150 mg/dL 12/20/2024 10:27 AM [facility] Comment: ATP III Classification of Triglycerides: <150 mg/dL: Normal 150 - 199 mg/dL: Borderline High 200 - 400 mg/dL: High >500 mg/dL: Very High Blood BLOOD SPECIMEN / Unknown Lab Venipuncture / Unknown 12/20/2024 7:21 AM CDT 12/20/2024 9:26 AM CDT us Nancie Mora MD LAB - CHEMISTRY ORDERABLES Fin al Result [facility] [address] [place] [phone], [facility] [phone] * EKG 12-Lead (12/19/2024 4:49 PM CDT) Only the most recent of2 resultswithin the time period is included. Ventricular Rate 97 BPM [facility] MUSE Atrial Rate 97 BPM [facility] MUSE P-R Interval 168 ms [facility] MUSE QRS Duration ms 84 ms [facility] MUSE Q-T Interval ms 352 ms [facility] MUSE QTC Calculation (Bezet) 447 ms [facility] MUSE Calculated P [place] 15 degrees SL MUSE Calculated R [place] -4 degrees [facility] MUSE Calculated T [place] 26 degrees [facility] MUSE Interpretation EKG NORMAL SINUS RHYTHM POSSIBLE ANTERIOR INFARCT , AGE UNDETERMINED ABNORMAL ECG WHEN COMPARED WITH ECG OF 19-DEC-2024 13:13, NO SIGNIFICANT CHANGE WAS FOUND Confirmed by MD HADLEY, ROBBIE ([id number]) on 12/20/2024 9:40:46 AM [facility] MUSE 12/19/2024 4:49 PM CDT 12/20/2024 9:40 AM CDT Nancie Mora MD ECG ORDERABLES Edited Result - Final Performing Organization Address [facility]/ZIP Co de Phone Number [facility] MUSE * TROPONIN-I HIGH SENSITIVE REFLEX 1HOUR (12/19/2024 3:16 PM CDT) Troponin I High Sensitive <3 <=35 ng/L 12/19/2024 4:22 PM CDT [facility] Delta Troponin I HS 12/19/2024 4:22 PM CDT [facility] Comment:Delta value intentio loy not calculated. Baseline to 1 hour specimen collection interval exceeded. Blood BLOOD SPECIMEN / Unknown Venipuncture / Unknown 12/19/2024 3:16 PM CDT 12/19/2024 3:31 PM CDT us Erum Keller PA-C LAB - CHEMISTRY ORDERABLES Final Result Performing Organization Address [facility] de Phone Number [address] [address], [place] [phone] * TSH (12/19/2024 3:16 PM CDT) TSH 0.828 0.350 - 4.940 uIU/mL 12/19/2024 6:54 PM CDT [facility] Blood BLOOD SPECIMEN / Unknown Venipuncture / Unknown 12/19/2024 3:16 PM CDT 12/19/2024 3:31 PM CDT us Nancie Mora MD LAB - CHEMISTRY ORDERABLES Fin al Result Performing Organization Address [facility]/ZIP Co de Phone Number [address] [phone] [phone] * XR CHEST 2VW (12/19/2024 2:30 PM CDT) Anatomical Region Laterality Modality Chest Digital Radiogra phy 12/19/2024 2:56 PM CDT Narrative 12/19/2024 11:47 PM CDT PROCEDURE: XR CHEST 2VW, DATE/TIME OF EXAM: 12/19/2024 2:31 PM, LOCATION [facility] INDICATION: R07.9: Chest pain, unspecified type ADDITIONAL CLINICAL INFORMATION: Ordering Provider Reason For Exam: ro effusion vs other COMPARISON: None. TECHNIQUE: Frontal and lateral radiographs of the chest. FINDINGS/IMPRESSION: There is no focal consolidation, pleural effusion, or pneumothorax. The cardiomediastinal silhouette is normal. The visible bony thorax is intact. Report dictated by Fabio Villafana MD, (Billposter). > Dictated by Billposter I, Giuliano Villa MD have personally reviewed and interpreted this examination/study. > Interpreting Provider: Giuliano Villa MD on 12/19/2024 11:47 PM Procedure Note Giuliano Villa MD - 12/19/2024 PROCEDURE: XR CHEST 2VW, DATE/TIME OF EXAM: 12/19/2024 2:31 PM, LOCATION [facility] INDICATION: R07.9: Chest pain, unspecified type ADDITIONAL CLINICAL INFORMATION: Ordering Provider Reason For Exam: ro effusion vs other COMPARISON: None. TECHNIQUE: Frontal and lateral radiographs of the chest. FINDINGS/IMPRESSION: There is no focal consolidation, pleural effusion, or pneumothorax. The cardiomediastinal silhouette is normal. The visible bony thorax isintact. Report dictated by Fabio Villafana MD, (Billposter). > Dictated by Billposter I, Giuliano Villa MD have personally reviewed and interpreted this examination/study. > Interpreting Provider: Giuliano Villa MD on 12/19/2024 11:47 PM Erum Keller PA-C DIAGNOSTIC IMAGING ORDERABL ES Final Result * TROPONIN-I HIGH SENSITIVE BASELINE + 1HR (12/19/2024 1:16 PM CDT) Troponin I High Sensitive <3 <=35 ng/L 12/19/2024 1:58 PM [facility] Blood BLOOD SPECIMEN / Unknown Venipuncture / Unknown 12/19/2024 1:16 PM CDT 12/19/2024 1:23 PM CDT us Erum Keller PA-C LAB - CHEMISTRY ORDERABLES Final Result Performing Organization Address City/State/[facility] Co de Phone Number [facility] [address] [place] [address], [facility] [phone] * CBC W AUTO DIFFERENTIAL (12/19/2024 1:16 PM CDT) WBC 9.4 4.0 - 10.7 x10E9/L 12/19/2024 1:29 PM [facility] RBC Count 4.77 4.30 - 5.80 x10E12/L 12/19/2024 1:29 PM [facility] Hemoglobin 14.8 13.3 - 17.5 g/dL 12/19/2024 1:29 PM [facility] Hematocrit 45.0 38.7 - 51.1 % 12/19/2024 1:29 PM [facility] MCV 94.3 80.0 - 98.0 fL 12/19/2024 1:29 PM [facility] MCH 31.0 26.7 - 33.6 pg 12/19/2024 1:29 PM [facility] MCHC 32.9 31.7 - 36.3 g/dL 12/19/2024 1:29 PM [facility] RDW-CV 13.0 11.3 - 14.8 % 12/19/2024 1:29 PM [facility] Platelet Count 237 150 - 420 x10E9/L 12/19/2024 1:29 PM [facility] MPV 10.6 7.8 - 11.4 fL 12/19/2024 1:29 PM [facility] Neutrophil % 64.2 41.0 - 74.0 % 12/19/2024 1:29 PM CDT [facility] Lymphocyte % 25.7 17.0 - 47.0 % 12/19/2024 1:29 PM [facility] Monocyte % 7.3 3.0 - 11.0 % 12/19/2024 1:29 PM [facility] Eosinophil % 1.5 0.0 - 7.0 % 12/19/2024 1:29 PM [facility] Basophil % 0.9 0.0 - 1.6 % 12/19/2024 1:29 PM [facility] Immature Granulocytes % 0.4 0.0 - 1.0 % 12/19/2024 1:29 PM [facility] Neutrophil Absolute 6.01 1.60 - 7.50 x10E9/L 12/19/2024 1:29 PM [facility] Lymphocyte Absolute 2.41 1.00 - 4.40 x10E9/L 12/19/2024 1:29 PM [facility] Monocyte Absolute 0.68 0.15 - 1.00 x10E9/L 12/19/2024 1:29 PM [facility] Eosinophil Absolute 0.14 0.00 - 0.60 x10E9/L 12/19/2024 1:29 PM [facility] Basophil Absolute 0.08 0.00 - 0.13 x10E9/L 12/19/2024 1:29 PM [facility] Blood BLOOD SPECIMEN / Unknown Venipuncture / Unknown 12/19/2024 1:16 PM CDT 12/19/2024 1:23 PM CDT us Erum Keller PA-C LAB - HEMATOLOGY ORDERABLES Final Result Performing Organization Address [facility]/State/ZIP Co de Phone Number [facility] [address] [place] [address], [facility] [phone] from Last 3 Months Insurance [facility] MEDICARE Advance Directives * Full Code (Latest Code Status on File) Date Activated Date Inactivated Comments 12/19/2024 5:40 PM 12/21/2024 6:33 PM Care Teams Security Coordinator Relationship Specialty Start Date End Date Provider, No Pcp PCP - General 12/19/24
--- OUTSIDE RECORDS SUMMARY | 2025-02-09 19:48 | XMS_ITS | Clinical Summary ---
Author Organization [facility] Address [address] [place] [phone] Care Team Providers Care Project Leader Name Role Phone Unavailable Primary Care Provider Unavailabl e Social History Tobacco Use Types Packs/Day Years Used Date Smoking Tobacco: Never Assessed Sex and Gender Information Value Date Recorded Sex Assigned at Not on file Legal Sex Male 9:30 PM CDT Gender Identity Not on file Sexual Orientation Not on file Plan of Treatment Health Maintenance Due Date Last Done Comments Hepatitis C Virus (HCV) Screening 1960 TdaP Immunization 1960 Cologuard 08/05/2003 Colonoscopy 08/05/2003 Colorectal Cancer Screening 08/05/2003 Immunochemical Fecal Occult Blood 08/05/2003 Pneumococcal Immunization (5 0+ years) (1 of 1 - PCV) 2008 Zoster Immunization (1 of 2) 2008 Influenza Immunization (#1) 2024 SARS-COV-2 Immunization ( season) 2024 03/26/2021, 08/03/2020, 06/21/2020 Respiratory Syncytial Virus (RSV) Immunization (Adult) (1 - 1-dose 75+ series) 2033 Hepatitis B Immunization Aged Out No longer eligible based on patient's age to complete this topic Human Papillomavirus (HPV) Immunization Aged Out No longer eligible b ased on patient's age to complete this topic Meningococcal Immunization (ACWY) Aged Out No longer eligible b ased on patient's age to complete this topic Rotavirus Immunization Aged Out No lo nger eligible based on patient's age to complete this topic
[2025-02-09] MEDS: HYDROmorphone HCL INJ (*CRX) 1 MG/ML SYR IM (20:31)
[2025-02-09 20:44] VITALS: BP 176/85; PULSE 78; RESP 17; O2SAT 100
[2025-02-09 21:27] VITALS: PULSE 83; RESP 17; O2SAT 100
--- NOTE | 2025-02-09 22:45 | ED_ITS ---
HPI - Extremity Injury (Lower) General Chief Complaint: Extremity Injury, Lower Stated Complaint: R pinky toe injury Time Seen by Provider: 02/09/25 19:30 History of Present Illness HPI Narrative: 64-year-old male presenting to the emergency department with right pinky toe pain after stubbing it against a dresser. Accidentally struck it while he was trying to walk and injured his right great toe. States he has some pain with palpation and denies any other symptoms such as weakness, neuropathy, sensation changes or bleeding. Was otherwise in his normal state of health. No other injuries. Related Data Allergies Allergy/AdvReac Type Severity Reaction Status Date / Time No Known Allergies Allergy Verified 02/09/25 17:52 Review of Systems Review of Systems: As reviewed above in HPI Exam Narrative: GENERAL: Morbidly obese but otherwise well-appearing not any distress. HEAD: Normocephalic and atraumatic EYES: PERRLA ENT: Nares clear, no rhinorrhea or epistaxis. Mucous membranes moist. NECK: Supple. CHEST: No respiratory distress ABDOMEN: Soft nondistended EXTREMITIES: Right 5th toe has some lateral subluxation evident externally but no overlying skin changes deformity or bleeding. 2+ pulses, good capillary refill of the digits. Full range of motion of the digits and ankle. SKIN: Warm, dry, no rash. NEURO: [No focal deficits]. Alert and oriented [x3.] PSYCH: [Normal mood and affect.] Course Vital Signs Vital signs: Vital Signs Temperature 36.4 C 02/09/25 17:55 Pulse Rate 89 02/09/25 17:55 Respiratory Rate 16 02/09/25 17:55 Blood Pressure 170/90 H 02/09/25 17:55 Pulse Oximetry 100 02/09/25 17:55 Temperature 36.4 C 02/09/25 17:55 Pulse Rate 83 02/09/25 21:27 Respiratory Rate 17 02/09/25 21:27 Blood Pressure 176/85 H 02/09/25 20:44 Pulse Oximetry 100 02/09/25 21:27 Procedures Orthopedic Joint Reduction Joint #1: Orthopedic Joint Reduction Date: 02/09/25 Orthopedic Joint Reduction Time: 21:00 Time Out Performed: Yes Side: right Joint Reduction Location: toe Analgesia: other (Intramuscular Dilaudid) Pre-Procedure Neuro Vascular Exam: normal Local Anesthesia: none Technique used: traction/counter-traction and direct manipulation Post-reduction neuro exam: intact Post-reduction vascular: intact Post Reduction X-Ray Obtained: Yes Post Reduction X-Ray Results: reduced Splint Applied: Yes (Angelica taping) Patient Tolerated Procedure: well and no complications MDM - Extremity Injury (Lower) MDM Narrative Medical decision making narrative: 64-year-old male presenting to the emergency department with right pinky toe pain after stubbing it against a dresser. Accidentally struck it while he was trying to walk and injured his right great toe. States he has some pain with palpation and denies any other symptoms such as weakness, neuropathy, sensation changes or bleeding. Was otherwise in his normal state of health. No other injuries. Right 5th toe has some lateral subluxation evident externally but no overlying skin changes deformity or bleeding. 2+ pulses, good capillary refill of the digits. Full range of motion of the digits and ankle. X-rays confirm lateral subluxation of the middle phalanx. Patient given reduction attempted bedside with direct traction which patient did not tolerate very well. Repeat images obtained showing no significant change. Patient given intramuscular Dilaudid for analgesia and repeat attempt with direct traction and manipulation showed appropriate realignment. Angelica taping to the adjacent toe completed and he was safe for discharge home with orthopedics referral as needed and instructions on conservative management and care. Questions answered and safe for discharge home at this time. Discharge Plan Discharge Clinical Impression: Closed dislocation of fifth toe Patient Disposition: Home Condition: Stable Instructions: Antibiotic Form Additional Instructions: Your dislocated toe was able to be better anatomically aligned and we angelica taped it to the adjacent toe. Recommendations are to apply ice to the area 20 minutes at a time, elevate the area, take Tylenol and ibuprofen every [id number] hours for pain and swelling control. Follow-up with your primary care provider and the provided orthopedic doctor in case is a persistent concern or resuscitation/dislocation occurs. Return with any recurrence or emergent issues. Patient Language: Mohawk Follow-up/Referrals: Hebert Kim MD [Physician, Orthopedics] - 3 Days Referral Note: Fifth toe dislocation status post reduction [facility] [Primary Care Provider, Medical] Time of Disposition: 21:07
== END 2025-02-09 21:30 | disposition home or self-care (01) ==
PROVIDERS: Emergency Provider Student in an Organized Health Care Education/Training Program
DX: S93.115A Dislocation of interphalangeal joint of left lesser toe(s), initial encounter (principal); E66.01 Morbid (severe) obesity due to excess calories; W22.03XA Walked into furniture, initial encounter
CPT/HCPCS: 28515; 28660; 73660; 96372; 99285; J1171